=== PATIENT | female | born 1975 | race Caucasian/White ===

== ENCOUNTER 2024-04-11 07:58 | Outpatient (OUT) | payer OTHER, SELFPAY ==
--- NOTE | 2024-04-10 13:49 | VEINCLINIC_ITS ---
Vital Signs 04/11/24 08:14 Height 5 ft 7 in Weight 90.718 kg BMI 31.3 Respiration 16 Varicose Veins Patient is a 48 year old female in this day as a referral from Dr. Stewart secondary to acute edema and pain to bilateral lower legs right greater than left. Patient states that she [facility] (approximately 2 months ago) which resulted in cellulities along with MRSA. Since then, patient has experieneced bilateral lower leg edema, pain, weakness and redness right leg greater than left leg. Patient does have a family history of varicose vein disease in her mother. Patient has not been had any workup nor vaircose vein treatments herself. Patient also has not had any issues with blood clots in the past. Patient has w orn bilateral leg knee high compression stockings for greater than 5 years secondary to rheumatoid arthritis. Alexandro Alvarez MD personally performed the services described in this documentation, as scribed by En Mcclendon RN in my presence and it is both accurate and complete. IEn RN, am scribing for, and in the presence of, Dr. Alexandro Siegel and in the presence of the patient. . thigh: bilateral (symptoms right leg > left leg), knee: bilateral, calf: bilateral, ankle: bilateral and alaniz: bilateral aching, burning, cramping, dull, sharp and tender 8 2months Worsened in recent months: Yes standing and sitting analgesics, elevating extremities, compression stockings and exercise Reports muscle spasms of leg, fatigue, heaviness, restless legs, limb pain, edema and leg edema History of lower extremity trauma: Yes (spider bite to right upper leg) Superficial thrombophlebitis: No Family history of varicose veins: yes Has patient had previous lower extremity venous surgery: No Patient has previously received the following treatment(s) for lower extremity varicose veins: Reports none Does patient have a history of : yes Does patient intend to have future pregnancies: no Has patient had lower extremity venous scan with relux testing: No Support hose used: Yes Problems walking or doing physical activity: Yes How does it affect you: can tolerate little to no exercise due to weakness and pain Do you walk much: Yes Do you stand much: Yes Review of Systems ROS Narrative Alexandro Alvarez MD personally performed the services described in this documentation, as scribed by En Mcclendon RN in my presence and it is both accurate and complete. I, En Mcclendon RN, am scribing for, and in the presence of, Dr. Alexandro Siegel and in the presence of the patient. Status of ROS 10 or more systems reviewed and unremark able except as noted in history and below Cardiovascular Reports: edema Integumentary/Breast Reports: itching, redness and changes in skin color Neurological Reports: weakness in extremities PFSH PFS Medical History (Updated 04/13/24 @ 08:33 by En Mcclendon) Varicose veins of bilateral lower extremities with pain ?I83.813 - Varicose veins of bilateral lower extremities with pain (ICD-10) Encounter for incision and drainage procedure ?Z76.89 - Persons encountering health services in other specified circumstances (ICD-10) MRSA cellulitis ?L03.90 - Cellulitis, unspecified (ICD-10) ?B95.62 - Methicillin resistant Staphylococcus aureus infection as the cause of diseases classified elsewhere (ICD-10) Cellulitis ?L03.90 - Cellulitis, unspecified (ICD-10) Rheumatoid arthritis ?M06.9 - Rheumatoid arthritis, unspecified (ICD-10) Anemia ?D64.9 - Anemia, unspecified (ICD-10) Surgical History (Updated 04/11/24 @ 08:25 by En Mcclendon) Status post chest tube placement ?Z93.8 - Other artificial opening status (ICD-10) H/O: hysterectomy ?Z90.710 - Acquired absence of both cervix and uterus (ICD-10) Family History (Updated 04/11/24 @ 08:26 by En Mcclendon) Other Family history of diabetes mellitus Family history of hypertension Pain due to varicose veins of both lower extremities Social History (Updated 04/11/24 @ 08:26 by En Mcclendon) Within the past year, how often did you have a drink containing alcohol: never Score interpretation: A score less than 3 is consistent with normal alcohol consumption. Smoking status: Never smoker Non-prescribed substance use: denies use Meds Home Medications and Allergies Home Medications ?Medication ?Instructions ?Recorded ?Confirmed ?Type cyclobenzaprine 5 mg tablet 5 mg PO DAILY 04/11/24 04/11/24 History folic acid 20 mg capsule 20 mg PO DAILY 04/11/24 04/11/24 History furosemide 20 mg tablet (Lasix) 20 mg PO DAILY 04/11/24 04/11/24 History iron sucrose 100 mg iron/5 mL 100 mg IV QWEEK 04/11/24 04/11/24 History intravenous solution (Venofer) methotrexate 2 mg/mL oral solution 04/11/24 History omeprazole 20 mg capsule,delayed 20 mg PO DAILY 04/11/24 04/11/24 History release potassium 20 mg chewable tablet mg PO 04/11/24 History tramadol 100 mg capsule 100 mg PO DAILY 04/11/24 04/11/24 History 24h,extended release(25-75) Allergies Allergy/AdvReac Type Severity Reaction Status Date / Time erythromycin base Allergy Severe Abdominal Verified 04/11/24 08:28 Pain Sulfa (Sulfonamide Allergy Intermediate Abdominal Verified 04/11/24 08:28 Antibiotics) Pain venlafaxine Allergy Joint Pain Verified 04/11/24 08:28 Exam Narrative Exam Narrative: Alexandro Alvarez MD personally performed the services described in this documentation, as scribed by En Mcclendon RN in my presence and it is both accurate and complete. En Alvarez RN, am scribing for, and in the presence of, Dr. Alexandro Siegel and in the presence of the patient. Constitutional Documenting provider has reviewed patient's vital signs: yes Common normals: oriented x3 Cardio Peripheral pulses: posterior tibial pulses present and dorsalis pedis pulses present Extremity Common normals: normal capillary refill General: calf tenderness and edema Right lower extremity: lower leg Right lower leg: inspection and palpation Left lower extremity: lower leg Left lower leg: inspection and palpation Neuro Common normals: oriented x3 Results Additional Findings Additional findings: Bilateral leg reflux u/s reveals moderate bilateral great saphenous and left small saphenous vein insufficiency with associated dilation along with right leg branch saphenous truncal tributary varicosities. Findings more consistent with that of lymphedema. Alexandro Alvarez MD personally performed the services described in this documentation, as scribed by En Mcclendon RN in my presence and it is both accurate and complete. En Alvarez RN, am scribing for, and in the presence of, Dr. Alexandro Siegel and in the presence of the patient. Assessment and Plan Assessment and Plan (1) Varicose veins of bilateral lower extremities with pain: Plan Plan is for patient to continue use of bilateral leg knee high compression stockings, rest, elevation of legs/feet all strategies to combat lymphedema. If symptoms persist, refer to lymphedema clinic in 1-2 months. Patient to I, Alexandro Siegel MD personally performed the services described in this documentation, as scribed by En Mcclendon RN in my presence and it is both accurate and complete. I, En Mcclendon RN, am scribing for, and in the presence of, Dr. Alexandro Siegel and in the presence of the patient.
--- NOTE | 2024-04-10 13:55 | W.VEIN ---
Discharge Plan Discharge Disposition: Home, Self-Care Plan of Treatment: f/u in 1-2 months if symptoms persist refer to lymphedema clinic Print Language: Icelandic Discharge Date/Time: 04/11/24 10:05
--- NOTE | 2024-04-11 08:01 | VEIN_ITS ---
Patient Name: JESICA MURPHY MR#: [id number] : 1975 Exam Date: 04/11/2024 Ordering Doctor: DR CHATA KANG RADIOLOGY REPORT PROCEDURE: VC EXT VENOUS REFLUX MIO LMTD COMPARISON: None. INDICATIONS: R60.0 Edema TECHNIQUE: Duplex imaging of the lower extremity to assess the deep and superficial venous system for the presence of deep or superficial venous incompetence and to document the location and severity of disease. The study includes evaluation of the great saphenous vein (GSV), anterior accessory saphenous vein (AASV) and small saphenous vein (SSV). Patient scanned in reverse Trendelenburg and standing. FINDINGS: RIGHT LOWER EXTREMITY: Saphenofemoral Junction Reflux: Yes 7.9mm 0.7 sec GSV: Diam (mm) Reflux/ Time (sec) Proximal Thigh 5.5 Yes 0.8 Mid Thigh 3.9 No Distal Thigh 2.7 No Prox Calf 2.1 Yes 1.7 Mid Calf 2.0 Yes 0.5 Saphenopopliteal Junction Reflux: 1.8mm No SSV: Proximal Calf 1.9 No Mid Calf 2.0 Yes 0.7 AASV: Not present Thrombi: No acute or chronic thrombus visualized Compressibility: Normal Flow: Normal Preforator: Dist/med calf 2.1mm with 0.5s reflux. Dist/med calf 2.2mm with 0.7s reflux. Tech Note: Incompetent GSV. Patent varicose vein prox/med calf 3.2mm with 1.3s reflux. Patent varicose vein 2.3mm with 1.1s reflux. LEFT LOWER EXTREMITY: Saphenofemoral Junction Reflux: Yes 9.0 mm 1.3 sec GSV: Diam (mm) Reflux/Time (sec) Proximal Thigh 7.0 Yes 1.4 Mid Thigh 3.9 No Distal Thigh 4.3 No Prox Calf 2.3 Yes 0.7 Mid Calf 2.7 No Saphenopopliteal Junction Relux: 5.8 mm Yes 1.6 SSV: Proximal Calf 5.7 Yes 1.4 Mid Calf 3.5 No AASV: Not present Thrombi: No acute or chronic thrombus visualized Compressibility: Normal Flow: Normal Record Center Specialist: Mid/med calf 3.5mm with 0s reflux. Tech Note: Incompetent GSV and SSV. Patent varicose vein dist/med thigh 2.0mm with 1.0s reflux. CONCLUSION: 1. Moderate bilateral great saphenous vein venous insufficiency with saphenofemoral junction reflux and dilatation 2. Mild to moderate left small saphenous vein venous insufficiency with dilatation saphenopopliteal junction reflux 3. Incompetent right leg varicose veins Dictated by: Alexandro Siegel MD on 04/11/2024 at 08:58 Approved by: Alexandro Siegel MD on 04/11/2024 at 09:00
--- NOTE | 2024-04-11 08:01 | VEIN_ITS ---
Patient Name: JESICA MURPHY MR#: [id number] : 1975 Exam Date: 04/11/2024 Ordering Doctor: DR TORREY KANG RADIOLOGY REPORT PROCEDURE: [facility] - OFFICE VISIT INITIAL COMPARISON: None. PROGRESS NOTES: 48-year-old female who was referred by Dr. Torrey Kang secondary to acute bilateral subcutaneous edema, erythema and pain. The patient had a spider bite [facility] with subsequent cellulitis, abscess, incision and drainage and placement of a drainage catheter. This has since resolved however the patient's lower leg symptoms have persisted. The patient has had some relief with the use of compression stockings. The patient has not exercised as she was concerned this would exacerbate the condition. The patient denies any signs and symptoms to suggest arterial ischemia. The patient describes a family history significant for diabetes, hypertension and varicose veins. Past medical history is significant for MRSA cellulitis, rheumatoid arthritis and iron deficiency anemia requiring a Port-A-Cath and multiple iron infusions. This has resolved after the patient was treated for hemorrhoids. The patient does not drink alcohol. The patient has never smoked. No illicit drug use. No history of deep vein thrombus or pulmonary embolus See separate history and physical for medication list. No prior treatment treatment for varicose or spider veins. Patient has worn compression stockings for years. Nursing notes were reviewed. After history and physical exam I discussed at length the pathophysiology of venous hypertension and possible treatments, therapies and strategies available. We discussed at length the importance of elevating the lower extremities above the level of the heart, increased physical activity and compression stocking use. While the patient does meet criteria for intravenous laser ablation micro foam chemical ablation, I do not believe her symptoms are primarily related to vein disease given the distribution and course of the history. I suspect the patient has lymphedema related to her prior infection. The patient was given multiple strategies on control of edema including leg elevation, proper use of compression stockings and intermittent exercise throughout the course of the day. I did recommend to the patient to use 20-30 mm knee high compression stockings and the patient was measured at the exam. At this time I felt the patient should consider conservative treatment as I believe she is dealing with lymphedema rather than venous insufficiency. I did offer referral to the lymphatic clinic. Ultrasound venous reflux study performed the same day was discussed at length with the patient. The report demonstrates mild to moderate bilateral great saphenous vein venous insufficiency. Mild to moderate left small saphenous vein venous insufficiency. Incompetent right leg varicose veins. PHYSICAL EXAM: The right leg demonstrates a few scattered reticular and spider veins. Moderate subcutaneous edema below the knee. Mild erythema with no active ulceration. No hemosiderin staining The left leg demonstrates a few scattered reticular and spider veins. Moderate subcutaneous edema below the knee. Mild erythema with no active ulceration. No hemosiderin staining Both thighs, legs and feet were symmetrically warm to the touch. Good posterior tibial and dorsalis pedis pulses were present bilaterally. VEIN/VC Facility EST Comprehensive IMPRESSION: 1. Mild to moderate bilateral great saphenous and right small saphenous vein venous insufficiency 2. Mild right lower extremity varicose veins 3. Moderate bilateral lower extremity subcutaneous edema 4. No flow significant arterial disease 5. CEAP: C3, Ep, As, Pr PLAN: 1. Strategies to control subcutaneous edema from suspected lymphedema including intermittent walking, use of 20-30 mm knee high compression stockings and leg elevation 2. Follow-up with lymphedema clinic if there is no improvement in the next 1-2 months 3. Follow-up in 2 years to evaluate vein disease Nurse notes, history and physical were reviewed and confirmed, see attached forms. The nurse was present throughout the physical exam and consultation Dictated by: Alexandro Siegel MD on 04/11/2024 at 09:46 Approved by: Alexandro Siegel MD on 04/11/2024 at 09:57
[2024-04-11 08:14] VITALS: BMI 31.3
== END 2024-04-11 10:05 | disposition home or self-care (01) ==
LOC: VC 07:59
PROVIDERS: PCP Internal Medicine Infectious Disease; Visit Provider Internal Medicine Infectious Disease
DX: R60.0 Localized edema (principal); I89.0 Lymphedema, not elsewhere classified
CPT/HCPCS: 93970; G0463

== ENCOUNTER 2024-06-02 07:59 | Outpatient (RCR) | payer OTHER, SELFPAY | END 2024-06-03 15:40 | disposition home or self-care (01) | LOC: OT 07:59 | PROVIDERS: PCP Internal Medicine Infectious Disease; Visit Provider Radiology Diagnostic Radiology | DX: I89.0 Lymphedema, not elsewhere classified (principal) | CPT/HCPCS: 97140; 97166; 97530 ==